=== PATIENT | female | born 1995 | race Caucasian/White ===

== ENCOUNTER → 2017-11-25 | Outpatient (CLI) | payer OTHER ==
[2017-11-25 08:54] LABS: LDL CHOLESTEROL 85 mg/dl
== END ==
LOC: LAB 07:56
PROVIDERS: ATTEND Family Medicine
DX: R47.81 Slurred speech (principal); R20.2 Paresthesia of skin; R73.01 Impaired fasting glucose
CPT/HCPCS: 36415; 82040; 82247; 82310; 82374; 82435; 82465; 82565; 82947; 83036; 83718; 84075; 84132; 84155; 84295; 84443; 84450; 84460; 84478; 84520; 85027

== ENCOUNTER → 2018-09-15 | Outpatient (CLI) | payer OTHER ==
[2018-09-15 08:27] LABS: LDL CHOLESTEROL 76 mg/dl
== END ==
LOC: LAB 07:52
PROVIDERS: ATTEND Family Medicine
DX: E03.9 Hypothyroidism, unspecified (principal); R73.01 Impaired fasting glucose; E78.5 Hyperlipidemia, unspecified
CPT/HCPCS: 36415; 82040; 82247; 82310; 82374; 82435; 82465; 82565; 82947; 83036; 83718; 84075; 84132; 84155; 84295; 84443; 84450; 84460; 84478; 84520